=== PATIENT | male | born 1965 ===

== ENCOUNTER → 2019-01-31 | Outpatient (CLI) | payer BC | LOC: GMAM 13:19 | PROVIDERS: ATTEND Family Medicine | DX: Z12.5 Encounter for screening for malignant neoplasm of prostate (principal) ==

== ENCOUNTER → 2019-02-01 | Outpatient (CLI) | payer BC | LOC: GMAM 14:15 | PROVIDERS: ATTEND Family Medicine | DX: M79.10 Myalgia, unspecified site (principal) ==